=== PATIENT | female | born 1950 | race Caucasian/White ===

== ENCOUNTER 2018-01-23 15:07 | Inpatient (IN) | payer OTHER ==
[~2018-01-23] VITALS: Ht 157.5 cm; Wt 81.1 kg
[~2018-01-23 15:07] MED LIST: ACYCLOVIR800 MG PO; MOTRIN800 MG PO; NAPROSYN500 MG PO; PERCOCET 5/31 TABLET PO
[2018-01-23 17:41] LABS: HEMATOCRIT 38.3 % (36.0-46.0); HEMOGLOBIN 12.7 G/DL (11.9-15.5); MCH 30.2 PG (29.0-34.0); MCHC 33.2 G/DL (30.0-36.0); PLATELET COUNT 252 K/uL (156-360); RBC DIS.WIDTH-CV 12.9 % (11.8-14.6); RBC DIS.WIDTH-SD 42.9 % (39-53); RED BLOOD COUNT 4.21 M/uL (3.80-5.20); WHITE BLOOD COUNT 14.6 K/uL (4.1-10.2)
[2018-01-23 17:44] LABS: ALBUMIN 3.8 g/dL (3.2-4.8); CHLORIDE 104 mEq/L (99-109); POTASSIUM 3.9 mEq/L (3.7-5.4); SODIUM 141 mEq/L (136-147)
[2018-01-23 17:46] LABS: GLUCOSE 108 mg/dL (70-99)
[2018-01-23 17:47] LABS: TOTAL PROTEIN 7.7 g/dL (6.4-8.3)
[2018-01-23 17:48] LABS: TOTAL BILIRUBIN 0.6 mg/dL (0.0-1.0)
[2018-01-23 17:50] LABS: ALKALINE PHOSPHATASE 137 IU/L (3-129); CREATININE 0.8 mg/dL (0.6-1.3); GFR ESTIMATE (CALCULATED) > 59 mL/min/
[2018-01-23 17:51] LABS: UREA NITROGEN (BUN) 16 mg/dL (9-23)
[2018-01-23 17:52] LABS: AST (GOT) 19 IU/L (2-34)
[2018-01-23 17:53] LABS: ALT (GPT) 17 IU/L (3-49)
[2018-01-23 18:49] LABS: APPEARANCE SL.HAZY ((CLEAR)); BILIRUBIN NEGATIVE; BLOOD SMALL; COLOR YELLOW ((YELLOW)); GLUCOSE (STRIP) NEGATIVE; KETONES 20; LEUKOCYTES MODERATE; NITRITE NEGATIVE; PROTEIN (STRIP) 30; SPECIFIC GRAVITY 1.016 (1.000-1.030)
[2018-01-23] MEDS ORDERED: ONE DAILY FOR1 EAC1 PO (18:53)
[2018-01-23] MEDS ORDERED: TYLENOL EXTRA500 MG PO (18:54)
[2018-01-23 21:50] LABS: RED BLOOD CELLS 0-5 /HPF (0-5)
[2018-01-23 21:51] LABS: EPITHELIAL CELLS 2+ /HPF
[2018-01-23 21:52] LABS: BACTERIA 1+ /HPF; MUCUS 2+ /LPF; UCUL ADDED? YES
[2018-01-23 23:00] VITALS: BP 143/69
[2018-01-23 23:31] VITALS: BP 143/69
[2018-01-24 04:12] VITALS: BP 131/65
[2018-01-24 06:08] LABS: HEMATOCRIT 39.2 % (36.0-46.0); HEMOGLOBIN 12.8 G/DL (11.9-15.5); MCH 29.8 PG (29.0-34.0); MCHC 32.7 G/DL (30.0-36.0); MCV 91.4 FL (83-99); PLATELET COUNT 291 K/uL (156-360); RBC DIS.WIDTH-CV 12.9 % (11.8-14.6); RBC DIS.WIDTH-SD 42.8 % (39-53); RED BLOOD COUNT 4.29 M/uL (3.80-5.20); WHITE BLOOD COUNT 17.2 K/uL (4.1-10.2)
[2018-01-24 07:20] LABS: ALBUMIN 3.9 G/DL (3.2-4.8); ALKALINE PHOSPHATASE 114 IU/L (3-129); ALT (GPT) 14 IU/L (3-49); AST (GOT) 16 IU/L (2-34); CHLORIDE 98 MEQ/L (99-109); CREATININE 0.7 MG/DL (0.6-1.3); GFR ESTIMATE (CALCULATED) > 59 mL/min/; GLUCOSE 158 mg/dL (70-99); POTASSIUM 3.8 MEQ/L (3.7-5.4); SODIUM 138 MEQ/L (136-147); TOTAL BILIRUBIN 0.6 MG/DL (0.0-1.0); TOTAL PROTEIN 6.9 G/DL (6.4-8.3); UREA NITROGEN (BUN) 13 mg/dL (9-23)
[2018-01-24 08:01] VITALS: BP 138/77
[2018-01-24 12:52] VITALS: BP 145/77
[2018-01-24 13:21] LABS: A/G RATIO 1.3 (1.1-1.8); ALBUMIN 4.1 G/DL (3.4-5.0); GLOBULINS 3.1 G/DL (2.3-3.5); IMMUNOGLOBULIN G 1466 MG/DL (650-1600); IMMUNOGLOBULIN M 116 MG/DL (50-300); TOTAL PROTEIN 7.2 G/DL (6.4-8.2)
[2018-01-24 13:28] LABS: INTER. NORMALIZED RATIO 1.1
[2018-01-24 13:31] LABS: PTT 28.7 SEC (25-37)
[2018-01-24 15:51] VITALS: BP 142/74
[2018-01-24 17:15] LABS: APPEARANCE SL.HAZY ((CLEAR)); BILIRUBIN NEGATIVE; BLOOD NEGATIVE; COLOR YELLOW ((YELLOW)); GLUCOSE (STRIP) NEGATIVE; KETONES NEGATIVE; LEUKOCYTES TRACE; NITRITE NEGATIVE; PROTEIN (STRIP) 100; SPECIFIC GRAVITY 1.016 (1.000-1.030); UROBILINOGEN 0.2 MG/DL (0.2-1.0)
[2018-01-24 18:26] LABS: EPITHELIAL CELLS RARE /HPF; MUCUS NONE SEEN /LPF; RED BLOOD CELLS NONE SEEN /HPF (0-5); WHITE BLOOD CELLS 0-5 /HPF (0-5)
[2018-01-24 18:27] LABS: BACTERIA RARE /HPF; UCUL ADDED? NO; URINE COMMENT MIUA ON UNSPUN URINE
[2018-01-24 18:28] LABS: AMORPHOUS URATES CRYSTALS RARE
[2018-01-24 19:36] VITALS: BP 144/75
[2018-01-24 23:12] VITALS: BP 139/67
[2018-01-25 06:02] LABS: HEMATOCRIT 40.3 % (36.0-46.0); HEMOGLOBIN 13.1 G/DL (11.9-15.5); MCH 29.6 PG (29.0-34.0); MCHC 32.5 G/DL (30.0-36.0); PLATELET COUNT 288 K/uL (156-360); RBC DIS.WIDTH-CV 12.8 % (11.8-14.6); RBC DIS.WIDTH-SD 42.3 % (39-53); RED BLOOD COUNT 4.43 M/uL (3.80-5.20); WHITE BLOOD COUNT 16.8 K/uL (4.1-10.2)
[2018-01-25 06:34] LABS: CHLORIDE 101 MEQ/L (99-109); CREATININE 0.8 MG/DL (0.6-1.3); GFR ESTIMATE (CALCULATED) > 59 mL/min/; GLUCOSE 196 mg/dL (70-99); POTASSIUM 4.1 MEQ/L (3.7-5.4); SODIUM 140 MEQ/L (136-147); UREA NITROGEN (BUN) 16 mg/dL (9-23)
[2018-01-25 07:05] LABS: URINE TOTAL PROTEIN 9 MG/DL (0-10)
[2018-01-25 08:06] VITALS: BP 172/78
[2018-01-25 14:32] LABS: ALBUMIN 3.51 G/DL (3.6-4.9); ALPHA-1 GLOBULIN 0.39 G/DL (0.15-0.40); ALPHA-2 GLOBULIN 0.61 G/DL (0.45-0.85); BETA-GLOBULIN 1.29 G/DL (0.65-1.15)
[2018-01-25 16:30] VITALS: BP 126/76
[2018-01-25 23:45] VITALS: BP 128/96
[2018-01-26 07:48] VITALS: BP 150/80
[2018-01-26] MEDS ORDERED: SENNA-DOCUSATE1 EAC1 PO (11:51)
[2018-01-26] MEDS ORDERED: OXYCODONE HCL5 MG PO (11:51)
[2018-01-26] MEDS ORDERED: DEXAMETHASONE4 MG PO (11:51)
[2018-01-26 15:44] VITALS: BP 152/80
== END 2018-01-26 17:00 | disposition home or self-care (01) | DRG 478 ==
LOC: EME 15:07 → EDOF 20:41 → 3EAST 20:41 → ENRESERV 20:42 → 3EAST 22:26
PROVIDERS: Anesthesiology; Internal Medicine; Physician Assistant; Radiology Diagnostic Radiology
PROC: 0QB13ZX Excision of Sacrum, Percutaneous Approach, Diagnostic (ICD-10-PCS; principal; 2018-01-24)
PROC: DP0C4ZZ Beam Radiation of Other Bone using Heavy Particles (Protons,Ions) (ICD-10-PCS; 2018-01-25)
DX: C79.51 Secondary malignant neoplasm of bone (principal); C80.1 Malignant (primary) neoplasm, unspecified; G95.29 Other cord compression; R91.8 Other nonspecific abnormal finding of lung field; R59.0 Localized enlarged lymph nodes; D72.828 Other elevated white blood cell count; M54.10 Radiculopathy, site unspecified; K59.00 Constipation, unspecified; Z80.0 Family history of malignant neoplasm of digestive organs; Z80.1 Family history of malignant neoplasm of trachea, bronchus and lung; Z82.0 Family history of epilepsy and other diseases of the nervous system; Z83.3 Family history of diabetes mellitus
CPT/HCPCS: 70450; 71260; 72125; 72131; 74177; 77012; 77295; 77300; 77331; 77334; 77412; 77417; 80048; 80053; 81003; 82232; 82784; 82948; 83615; 83880; 83883 90; 84165; 84166; 85027; 85610; 85730; 86334; 87086; 88307; 88341 TC; 88342 TC; 93005; 93306; 93971; 99281; 99285; J1100; J1644; J1815; J2930; J3010

== ENCOUNTER 2018-02-04 12:09 | Emergency (ER) | payer SELFPAY ==
[~2018-02-04] VITALS: Ht 157.5 cm; Wt 75.0 kg
[~2018-02-04 12:09] MED LIST changes: +DEXAMETHASONE4 MG PO; +ONE DAILY FOR1 EAC1 PO; +OXYCODONE HCL5 MG PO; +SENNA-DOCUSATE1 EAC1 PO; +TYLENOL EXTRA500 MG PO
[2018-02-04 13:06] LABS: BASOPHIL (%) 0.5 % (0-1); BASOPHIL COUNT 0.1 K/uL (0-0.1); EOSINOPHIL (%) 0 % (0-5); HEMATOCRIT 39.6 % (36.0-46.0); HEMOGLOBIN 13.6 G/DL (11.9-15.5); IMMATURE GRANULOCYTE (%) 1.7 % (0.0-0.7); LYMPHOCYTE (%) 1.3 % (15-42); LYMPHOCYTE COUNT 0.3 K/uL (1.0-2.8); MCH 30.3 PG (29.0-34.0); MCHC 34.3 G/DL (30.0-36.0); MCV 88.2 FL (83-99); MONOCYTE (%) 5.1 % (3-12); MONOCYTE COUNT 1.2 K/uL (0-0.8); NEUTROPHIL (%) 91.4 % (45-76); NEUTROPHIL COUNT 20.9 K/uL (1.8-6.4); PLATELET COUNT 223 K/uL (156-360); RBC DIS.WIDTH-CV 12.2 % (11.8-14.6); RBC DIS.WIDTH-SD 39.6 % (39-53); RED BLOOD COUNT 4.49 M/uL (3.80-5.20); WHITE BLOOD COUNT 22.9 K/uL (4.1-10.2)
[2018-02-04 13:15] LABS: INTER. NORMALIZED RATIO 1.2
[2018-02-04 13:16] LABS: CHLORIDE 97 mEq/L (99-109); SODIUM 133 mEq/L (136-147)
[2018-02-04 13:18] LABS: GLUCOSE 274 mg/dL (70-99)
[2018-02-04 13:22] LABS: CREATININE 0.9 mg/dL (0.6-1.3); GFR ESTIMATE (CALCULATED) > 59 mL/min/
[2018-02-04 13:23] LABS: UREA NITROGEN (BUN) 36 mg/dL (9-23)
[2018-02-04 18:15] VITALS: BP 125/64
== END 2018-02-04 18:18 | disposition home or self-care (01) ==
LOC: EME 12:09
PROVIDERS: Emergency Medicine
DX: N95.0 Postmenopausal bleeding (principal); C76.51 Malignant neoplasm of right lower limb; C79.9 Secondary malignant neoplasm of unspecified site; D72.829 Elevated white blood cell count, unspecified; G89.29 Other chronic pain; R10.9 Unspecified abdominal pain
CPT/HCPCS: 76856; 80048; 85025; 85610; 86850; 86900; 86901; 99281; 99284

== ENCOUNTER 2018-02-06 13:19 | Inpatient (IN) | payer OTHER ==
[~2018-02-06] VITALS: Ht 157.5 cm; Wt 81.4 kg
[~2018-02-06 13:19] MED LIST changes: -DECADRON4 M1 PO; -SENNA PLUS TAB1 EACH PO
[2018-02-06 14:19] LABS: PLATELET COUNT 190 K/uL (156-360)
[2018-02-06 14:28] LABS: INTER. NORMALIZED RATIO 1.2
[2018-02-06 14:29] LABS: HEMATOCRIT 39.8 % (36.0-46.0); HEMOGLOBIN 13.8 G/DL (11.9-15.5); MCH 30.5 PG (29.0-34.0); MCHC 34.7 G/DL (30.0-36.0); MCV 87.9 FL (83-99); RBC DIS.WIDTH-CV 12.4 % (11.8-14.6); RBC DIS.WIDTH-SD 39.8 % (39-53); RED BLOOD COUNT 4.53 M/uL (3.80-5.20); WHITE BLOOD COUNT 35.4 K/uL (4.1-10.2)
[2018-02-06 14:31] LABS: PTT 22.3 SEC (25-37)
[2018-02-06 14:32] LABS: ALBUMIN 3.5 g/dL (3.2-4.8); CHLORIDE 94 mEq/L (99-109); POTASSIUM 4.5 mEq/L (3.7-5.4); SODIUM 132 mEq/L (136-147)
[2018-02-06 14:34] LABS: GLUCOSE 274 mg/dL (70-99); TOTAL PROTEIN 6.9 g/dL (6.4-8.3)
[2018-02-06 14:36] LABS: TOTAL BILIRUBIN 1.1 mg/dL (0.0-1.0)
[2018-02-06 14:38] LABS: ALKALINE PHOSPHATASE 187 IU/L (3-129); GFR ESTIMATE (CALCULATED) 59 mL/min/
[2018-02-06 14:39] LABS: UREA NITROGEN (BUN) 39 mg/dL (9-23)
[2018-02-06 14:40] LABS: AST (GOT) 14 IU/L (2-34)
[2018-02-06 14:41] LABS: ALT (GPT) 19 IU/L (3-49)
[2018-02-06] MEDS ORDERED: SENNA PLUS TAB1 EACH PO (16:25)
[2018-02-06] MEDS ORDERED: DECADRON4 M1 PO (16:26)
[2018-02-06 19:09] VITALS: BP 134/65
[2018-02-06 22:51] VITALS: BP 129/60
[2018-02-07 06:04] LABS: BASOPHIL (%) 0.3 % (0-1); BASOPHIL COUNT 0.1 K/uL (0-0.1); EOSINOPHIL (%) 0 % (0-5); HEMATOCRIT 32.7 % (36.0-46.0); IMMATURE GRANULOCYTE (%) 2.7 % (0.0-0.7); LYMPHOCYTE (%) 0.6 % (15-42); LYMPHOCYTE COUNT 0.2 K/uL (1.0-2.8); MCH 29.7 PG (29.0-34.0); MCV 89.8 FL (83-99); MONOCYTE (%) 2.1 % (3-12); MONOCYTE COUNT 0.6 K/uL (0-0.8); NEUTROPHIL (%) 94.3 % (45-76); NEUTROPHIL COUNT 26.3 K/uL (1.8-6.4); PLATELET COUNT 155 K/uL (156-360); RBC DIS.WIDTH-CV 12.4 % (11.8-14.6); RBC DIS.WIDTH-SD 40.5 % (39-53); RED BLOOD COUNT 3.64 M/uL (3.80-5.20); WHITE BLOOD COUNT 27.9 K/uL (4.1-10.2)
[2018-02-07 06:07] LABS: HEMOGLOBIN 10.8 G/DL (11.9-15.5)
[2018-02-07 06:10] LABS: ALBUMIN 2.8 G/DL (3.2-4.8); ALKALINE PHOSPHATASE 115 IU/L (3-129); ALT (GPT) 12 IU/L (3-49); AST (GOT) 9 IU/L (2-34); CHLORIDE 98 MEQ/L (99-109); CREATININE 0.6 MG/DL (0.6-1.3); GFR ESTIMATE (CALCULATED) > 59 mL/min/; GLUCOSE 272 mg/dL (70-99); POTASSIUM 4.5 MEQ/L (3.7-5.4); SODIUM 131 MEQ/L (136-147); TOTAL BILIRUBIN 0.7 MG/DL (0.0-1.0); TOTAL PROTEIN 5.1 G/DL (6.4-8.3); UREA NITROGEN (BUN) 27 mg/dL (9-23)
[2018-02-07 07:54] VITALS: BP 131/64
[2018-02-07 11:48] VITALS: BP 130/61
[2018-02-07 16:32] VITALS: BP 136/68
[2018-02-07 18:54] VITALS: BP 100/67
[2018-02-07 22:40] VITALS: BP 158/67
[2018-02-08 07:42] VITALS: BP 130/63
[2018-02-08 16:15] VITALS: BP 177/78
[2018-02-09 00:53] VITALS: BP 143/64
[2018-02-09 06:00] LABS: HEMATOCRIT 32.5 % (36.0-46.0); HEMOGLOBIN 10.6 G/DL (11.9-15.5); MCH 29.7 PG (29.0-34.0); MCHC 32.6 G/DL (30.0-36.0); PLATELET COUNT 124 K/uL (156-360); RBC DIS.WIDTH-CV 12.4 % (11.8-14.6); RBC DIS.WIDTH-SD 41.2 % (39-53); RED BLOOD COUNT 3.57 M/uL (3.80-5.20); WHITE BLOOD COUNT 16.2 K/uL (4.1-10.2)
[2018-02-09 06:29] LABS: CHLORIDE 99 MEQ/L (99-109); CREATININE 0.5 MG/DL (0.6-1.3); GFR ESTIMATE (CALCULATED) > 59 mL/min/; GLUCOSE 345 mg/dL (70-99); POTASSIUM 4.5 MEQ/L (3.7-5.4); SODIUM 130 MEQ/L (136-147); UREA NITROGEN (BUN) 22 mg/dL (9-23)
[2018-02-09 07:58] VITALS: BP 105/64
[2018-02-09 15:30] VITALS: BP 165/73
[2018-02-09 20:29] VITALS: BP 169/74
[2018-02-09 23:44] VITALS: BP 128/75
[2018-02-10 07:39] VITALS: BP 150/70
[2018-02-10 09:08] LABS: HEMATOCRIT 34.2 % (36.0-46.0); HEMOGLOBIN 11.5 G/DL (11.9-15.5); MCH 29.8 PG (29.0-34.0); MCHC 33.6 G/DL (30.0-36.0); MCV 88.6 FL (83-99); PLATELET COUNT 121 K/uL (156-360); RBC DIS.WIDTH-CV 12.3 % (11.8-14.6); RBC DIS.WIDTH-SD 39.5 % (39-53); RED BLOOD COUNT 3.86 M/uL (3.80-5.20); WHITE BLOOD COUNT 13.8 K/uL (4.1-10.2)
[2018-02-10 10:00] LABS: CHLORIDE 99 MEQ/L (99-109); POTASSIUM 4.7 MEQ/L (3.7-5.4); SODIUM 129 MEQ/L (136-147)
[2018-02-10 10:06] LABS: CREATININE 0.5 MG/DL (0.6-1.3); GFR ESTIMATE (CALCULATED) > 59 mL/min/; GLUCOSE 297 mg/dL (70-99); UREA NITROGEN (BUN) 20 mg/dL (9-23)
[2018-02-10 15:57] VITALS: BP 157/73
[2018-02-10 23:47] VITALS: BP 157/72
[2018-02-11 07:16] VITALS: BP 141/69
[2018-02-11] MEDS ORDERED: MYCOSTATIN 100,60 ML PO (10:16)
[2018-02-11] MEDS ORDERED: TYLENOL325 MG PR (10:17)
[2018-02-11] MEDS ORDERED: Zeasorb Antifungal T TP (10:18)
[2018-02-11] MEDS ORDERED: NOVOLOG 10100 UNITS/ SC (10:19)
[2018-02-11] MEDS ORDERED: DECADRON4 M1 PO (11:26)
[2018-02-11 15:24] VITALS: BP 138/73
== END 2018-02-11 15:50 | DRG 948 ==
LOC: EME 13:19 → EDOF 17:05 → 5EAST 17:05 → ENRESERV 17:11 → 5EAST 18:13 → ENPENDDIS 02-11 15:30 → 5EAST 02-11 15:50
PROVIDERS: Emergency Medicine; Internal Medicine; Physician Assistant
DX: G89.3 Neoplasm related pain (acute) (chronic) (principal); M54.2 Cervicalgia; D72.829 Elevated white blood cell count, unspecified; R13.10 Dysphagia, unspecified; C7B.8 Other secondary neuroendocrine tumors; E86.0 Dehydration; R53.1 Weakness; Z51.5 Encounter for palliative care; M48.00 Spinal stenosis, site unspecified; R91.8 Other nonspecific abnormal finding of lung field; Z92.3 Personal history of irradiation; Z66 Do not resuscitate; M54.9 Dorsalgia, unspecified; G89.29 Other chronic pain; G95.29 Other cord compression; E66.9 Obesity, unspecified; Z68.32 Body mass index [BMI] 32.0-32.9, adult; C80.1 Malignant (primary) neoplasm, unspecified; R59.1 Generalized enlarged lymph nodes; Z80.0 Family history of malignant neoplasm of digestive organs; Z82.0 Family history of epilepsy and other diseases of the nervous system; Z80.1 Family history of malignant neoplasm of trachea, bronchus and lung; B37.0 Candidal stomatitis
CPT/HCPCS: 72040; 72125; 77412; 80048; 80053; 82948; 85025; 85027; 85610; 85730; 92610 GN; 99281; 99285; J1100; J1644; J1815; J3010; J7030; J8540

== ENCOUNTER → 2018-02-06 | Outpatient (CLI) | payer OTHER ==
[~2018-02-06] MED LIST changes: +DECADRON4 M1 PO; +SENNA PLUS TAB1 EACH PO
== END | disposition home or self-care (01) ==
LOC: RAD 11:26
DX: M40.292 Other kyphosis, cervical region (principal); R22.1 Localized swelling, mass and lump, neck
CPT/HCPCS: 72040

== ENCOUNTER 2018-03-10 18:08 | Emergency (ER) | payer OTHER ==
[~2018-03-10] VITALS: Ht 157.5 cm; Wt 76.2 kg
[~2018-03-10 18:08] MED LIST changes: +DECADRON4 M1 PO; +MYCOSTATIN 100,60 ML PO; +NOVOLOG 10100 UNITS/ SC; +SENNA PLUS TAB1 EACH PO; +TYLENOL325 MG PR; +Zeasorb Antifungal T TP
[2018-03-10 19:16] LABS: BASOPHIL (%) 0.5 % (0-1); BASOPHIL COUNT 0.1 K/uL (0-0.1); EOSINOPHIL (%) 0.2 % (0-5); HEMATOCRIT 30.6 % (36.0-46.0); HEMOGLOBIN 9.9 G/DL (11.9-15.5); IMMATURE GRANULOCYTE (%) 2.9 % (0.0-0.7); LYMPHOCYTE (%) 4.2 % (15-42); LYMPHOCYTE COUNT 0.8 K/uL (1.0-2.8); MCH 29.8 PG (29.0-34.0); MCHC 32.4 G/DL (30.0-36.0); MCV 92.2 FL (83-99); MONOCYTE (%) 7.7 % (3-12); MONOCYTE COUNT 1.4 K/uL (0-0.8); NEUTROPHIL (%) 84.5 % (45-76); NEUTROPHIL COUNT 15.4 K/uL (1.8-6.4); NRBC (%) 0.2 /100 WBC (0-0); RBC DIS.WIDTH-CV 15.3 % (11.8-14.6); RBC DIS.WIDTH-SD 50.6 % (39-53); RED BLOOD COUNT 3.32 M/uL (3.80-5.20); WHITE BLOOD COUNT 18.3 K/uL (4.1-10.2)
[2018-03-10 19:19] LABS: PLATELET COUNT 205 K/uL (156-360)
[2018-03-10 19:28] LABS: CHLORIDE 97 mEq/L (99-109); POTASSIUM 4.4 mEq/L (3.7-5.4); SODIUM 130 mEq/L (136-147)
[2018-03-10 19:30] LABS: GLUCOSE 93 mg/dL (70-99)
[2018-03-10 19:34] LABS: CREATININE 0.6 mg/dL (0.6-1.3); GFR ESTIMATE (CALCULATED) > 59 mL/min/
[2018-03-10 19:35] LABS: UREA NITROGEN (BUN) 11 mg/dL (9-23)
[2018-03-10 20:25] LABS: APPEARANCE CLOUDY ((CLEAR)); BILIRUBIN NEGATIVE; BLOOD NEGATIVE; COLOR AMBER ((YELLOW)); GLUCOSE (STRIP) NEGATIVE; KETONES NEGATIVE; LEUKOCYTES NEGATIVE; NITRITE NEGATIVE; PROTEIN (STRIP) 30
[2018-03-10 20:49] LABS: EPITHELIAL CELLS 1+ /HPF; MUCUS 3+ /LPF; RED BLOOD CELLS NONE SEEN /HPF (0-5); WHITE BLOOD CELLS 0-5 /HPF (0-5)
[2018-03-10 20:50] LABS: AMORPHOUS URATES CRYSTALS 2+; BACTERIA RARE /HPF; HYALINE CASTS 0-5 /LPF; UCUL ADDED? NO
[2018-03-10 23:00] VITALS: BP 137/78
== END 2018-03-10 23:00 ==
LOC: EME 18:08
DX: R50.9 Fever, unspecified (principal); K21.9 Gastro-esophageal reflux disease without esophagitis; I10 Essential (primary) hypertension; E11.9 Type 2 diabetes mellitus without complications; Z85.41 Personal history of malignant neoplasm of cervix uteri
CPT/HCPCS: 71046; 80048; 81003; 83605; 85025; 99281; 99285